=== PATIENT | male | born 1970 | race Caucasian/White ===

== ENCOUNTER 2019-01-16 17:49 | Emergency (ER) | payer OTHER ==
[~2019-01-16] VITALS: Ht 170.2 cm; Wt 86.6 kg
[2019-01-16 18:06] VITALS: Ht 170.2 cm; Wt 86.6 kg
[2019-01-16 19:59] VITALS: BP 116/70
== END 2019-01-16 19:59 | disposition home or self-care (01) ==
LOC: ED 17:49
DX: L03.011 Cellulitis of right finger (principal)